=== PATIENT | female | born 1950 | race Caucasian/White ===

== ENCOUNTER 2020-12-07 17:27 | Observation (INO) | payer MEDICARE ==
[2020-12-07 18:43] LABS: Bilirubin Neg (Negative); Blood, Urine Negative (Negative); Clarity Clear (Clear); Glucose, Urine (Dipstick) Normal (Negative); Ketone, Urine Negative (Negative); Leukocyte Negative (Negative); Nitrite Negative (Negative); Protein, Urine (Dipstick) 15 mg/dl (Neg-Trace); Specific Gravity, Urine 1.015 (1.002-1.036); Urobilinogen Normal mg/dL (Less than 2)
[2020-12-07 22:00] VITALS: BMI 38.6
[2020-12-07] MEDS ORDERED: Sodium Chloride 0.9% 1,000 ML IV SCH ×2 (22:15→22:30)
[2020-12-07] MEDS ORDERED: Ondansetron ODT 4 MG TAB PO PRN (22:15)
[2020-12-07] MEDS ORDERED: Senokot S 8.6-50 MG TAB PO PRN (22:15)
[2020-12-07] MEDS ORDERED: Milk Of Magnesia 30 ML UDCUP PO PRN (22:15)
[2020-12-07] MEDS ORDERED: Ondansetron PF 4 MG/2 ML Vial IVP PRN (22:15)
[2020-12-07] MEDS ORDERED: cloNIDine 0.1 MG TAB PO PRN (22:19)
[2020-12-07] MEDS ORDERED: Dulaglutide [Trulicity] 0.75 MG/0.5 ML Pen.Injctr SC SCH (22:30)
[2020-12-08 04:48] LABS: #Eosinphils 0.1 10x3/uL (0.0-0.5); #Monocytes 0.3 10x3/uL (0.0-1.1); %Eosinophils 2.9 % (0.0-6.0); %Lymphocytes 17.2 % (18.0-47.0); %Monocytes 8.3 % (0.0-10.0); Hemoglobin 10.4 g/dL (12.0-15.5); Mean Corpuscular HGB CONC 32.5 g/dL (32.0-36.0); Platelet Count 87 10x3/uL (150-450); RBC Distribution Width 15.3 % (11.5-14.5); White Blood Cell (WBC) Count 3.1 10x3/uL (3.5-10.5)
[2020-12-08 04:49] LABS: #Neutrophils 2.3 10x3/uL (1.5-8.4); %Neutrophils 71.6 % (40.0-75.0)
[2020-12-08 04:58] LABS: Calcium 8.4 mg/dL (7.8-10.44); Chloride 106 mmol/L (98-107); Potassium 3.2 mmol/L (3.5-5.1); Sodium 140 mmol/L (136-145)
[2020-12-08 05:31] LABS: BUN (Urea Nitrogen) 56 mg/dL (9.8-20.1); Calc. Creatinine Clearance 47 mL/min (70-130); Carbon Dioxide 23 mmol/L (23-31); Glucose 88 mg/dL (80-115)
[2020-12-08 05:35] LABS: Anion Gap 14 mmol/L (10-20)
[2020-12-08] MEDS: Metoprolol Tartrate 50 MG TAB PO SCH ×2 (08:00→17:17)
[2020-12-08] MEDS: Aspirin 81 mg Enteric Coated Tablet PO SCH (08:02)
[2020-12-08] MEDS: hydrALAZINE 25 MG TAB PO SCH ×3 (08:02→20:56)
[2020-12-08] MEDS ORDERED: Enoxaparin Sodium 30 MG/0.3 ML SYRINGE SC SCH (09:00)
[2020-12-08] MEDS ORDERED: Potassium Chloride 20 MEQ TAB PO SCH (13:00)
[2020-12-08 13:37] LABS: SARS-CoV-2 PCR by NAA Not Detected (NotDetected)
[2020-12-08] MEDS: Sodium Chloride 0.9% 1,000 ML IV SCH (15:45)
[2020-12-09] MEDS: Sodium Chloride 0.9% 1,000 ML IV SCH (03:11)
[2020-12-09 05:42] LABS: Anion Gap 14 mmol/L (10-20); BUN (Urea Nitrogen) 27 mg/dL (9.8-20.1); Calc. Creatinine Clearance 66 mL/min (70-130); Calcium 8.3 mg/dL (7.8-10.44); Carbon Dioxide 24 mmol/L (23-31); Chloride 109 mmol/L (98-107); Glucose 125 mg/dL (80-115); Potassium 3.4 mmol/L (3.5-5.1); Sodium 144 mmol/L (136-145)
[2020-12-09 08:01] VITALS: TEMP 98.4
[2020-12-09] MEDS ORDERED: Enoxaparin Sodium 40 MG/0.4 ML SYRINGE SC SCH (09:00)
[2020-12-09] MEDS: Metoprolol Tartrate 50 MG TAB PO SCH (11:13)
[2020-12-09] MEDS: Aspirin 81 mg Enteric Coated Tablet PO SCH (11:13)
[2020-12-09] MEDS: hydrALAZINE 25 MG TAB PO SCH (11:14)
[2020-12-09 11:57] VITALS: BP 136/74
== END 2020-12-09 14:45 | disposition home or self-care (01) ==
LOC: CSHERS 17:27 → CSHTELE 18:27 → UNDOADMOB 20:11 → CSHTELE 20:11 → OBSVTOIN 12-09 11:07 → INTOOBSV 12-09 11:07 → UNDODISOB 12-09 14:45
PROVIDERS: ADMIT Family Medicine; ATTEND Internal Medicine
DX: N17.9 Acute kidney failure, unspecified (principal); I50.32 Chronic diastolic (congestive) heart failure; F33.9 Major depressive disorder, recurrent, unspecified; I11.0 Hypertensive heart disease with heart failure; E11.9 Type 2 diabetes mellitus without complications; Z79.84 Long term (current) use of oral hypoglycemic drugs; Z88.0 Allergy status to penicillin; Z88.2 Allergy status to sulfonamides; E66.9 Obesity, unspecified; Z68.38 Body mass index [BMI] 38.0-38.9, adult; N20.0 Calculus of kidney; G47.33 Obstructive sleep apnea (adult) (pediatric); F41.9 Anxiety disorder, unspecified; F43.10 Post-traumatic stress disorder, unspecified; Z20.822 Contact with and (suspected) exposure to COVID-19
CPT/HCPCS: 76770; 80048 ×2; 81003; 82550; 82962 ×3; 83735; 83880; 85025; 94760 ×2; 96372; 99284; G0378 ×4; U0003; U0005; 36415; 36416; 87635; J1650

== ENCOUNTER 2022-11-26 09:49 | Emergency (ER) | payer MEDICARE ==
[2022-11-26 11:41] LABS: #Eosinphils 0.1 10x3/uL (0.0-0.5); #Monocytes 0.5 10x3/uL (0.0-1.1); #Neutrophils 5.4 10x3/uL (1.5-8.4); %Basophils 0.4 % (0.0-2.0); %Eosinophils 1.3 % (0.0-6.0); %Lymphocytes 13.1 % (18.0-47.0); %Monocytes 6.8 % (0.0-10.0); %Neutrophils 77.8 % (40.0-75.0); Hemoglobin 13.6 g/dL (12.0-15.5); Mean Corpuscular HGB CONC 32.9 g/dL (32.0-36.0); Mean Corpuscular Volume 82.1 fl (81.6-98.3); Mean Platelet Volume 10.3 fl (7.4-10.4); Platelet Count 107 10x3/uL (150-450); RBC Distribution Width 15.9 % (11.5-14.5); Red Blood Cell (RBC) Count 5.04 10x6/uL (3.90-5.03); White Blood Cell (WBC) Count 6.9 10x3/uL (3.5-10.5)
[2022-11-26] MEDS ORDERED: HYDROcodone/Acetaminophen 5/325 mg Tablet ONE (11:43)
[2022-11-26 11:53] LABS: ALT (SGPT) 19 U/L (8-55); AST (SGOT) 27 U/L (5-34); Albumin 4.2 g/dL (3.4-4.8); Alkaline Phosphatase 60 U/L (40-110); Anion Gap 16 mmol/L (10-20); BUN (Urea Nitrogen) 31 mg/dL (9.8-20.1); Bilirubin, Total 0.5 mg/dL (0.2-1.2); Calc. Creatinine Clearance 0 mL/min (70-130); Calcium 9.7 mg/dL (7.8-10.44); Carbon Dioxide 27 mmol/L (23-31); Chloride 100 mmol/L (98-107); Estimated GFR 53; Globulin 2.7 g/dL (2.4-3.5); Glucose 141 mg/dL (83-110); Potassium 3.6 mmol/L (3.5-5.1); Protein, Total 6.9 g/dL (5.8-8.1); Sodium 139 mmol/L (136-145)
== END 2022-11-26 13:43 | disposition home or self-care (01) ==
LOC: CSHERS 09:49
DX: M54.50 Low back pain, unspecified (principal); R10.32 Left lower quadrant pain; E11.9 Type 2 diabetes mellitus without complications; I11.0 Hypertensive heart disease with heart failure; I50.9 Heart failure, unspecified; Z79.899 Other long term (current) drug therapy; Z79.84 Long term (current) use of oral hypoglycemic drugs; Z79.82 Long term (current) use of aspirin
CPT/HCPCS: 36415; 71250; 74177; 80053; 85025

== ENCOUNTER 2022-12-05 15:30 | Observation (INO) | payer MEDICARE ==
[2022-12-05 16:26] LABS: #Eosinphils 0.1 10x3/uL (0.0-0.5); #Monocytes 0.6 10x3/uL (0.0-1.1); #Neutrophils 7.6 10x3/uL (1.5-8.4); %Basophils 0.2 % (0.0-2.0); %Eosinophils 0.7 % (0.0-6.0); %Lymphocytes 7.7 % (18.0-47.0); %Monocytes 6.9 % (0.0-10.0); %Neutrophils 83.9 % (40.0-75.0); Hemoglobin 13.3 g/dL (12.0-15.5); Mean Corpuscular HGB CONC 32.7 g/dL (32.0-36.0); Mean Corpuscular Hemoglobin 27.3 pg (27.0-33.0); Mean Corpuscular Volume 83.6 fl (81.6-98.3); Mean Platelet Volume 10.5 fl (7.4-10.4); Platelet Count 149 10x3/uL (150-450); RBC Distribution Width 15.9 % (11.5-14.5); Red Blood Cell (RBC) Count 4.87 10x6/uL (3.90-5.03); White Blood Cell (WBC) Count 9.1 10x3/uL (3.5-10.5)
[2022-12-05 16:37] LABS: Anion Gap 18 mmol/L (10-20); BUN (Urea Nitrogen) 39 mg/dL (9.8-20.1); Calc. Creatinine Clearance 0 mL/min (70-130); Carbon Dioxide 23 mmol/L (23-31); Chloride 98 mmol/L (98-107); Estimated GFR 31; Glucose 188 mg/dL (83-110); Magnesium 1.8 mg/dL (1.6-2.6); Potassium 4.2 mmol/L (3.5-5.1); Sodium 135 mmol/L (136-145)
[2022-12-05] MEDS ORDERED: Ondansetron PF 4 MG/2 ML Vial IVP PRN (18:10)
[2022-12-05] MEDS ORDERED: Acetaminophen 325 MG TAB PO PRN (18:10)
[2022-12-05] MEDS ORDERED: Ondansetron ODT 4 MG TAB PO PRN (18:10)
[2022-12-05] MEDS ORDERED: HYDROcodone/Acetaminophen 7.5/325 mg Tablet PO PRN (18:11)
[2022-12-05 19:07] LABS: Bilirubin Neg (Negative); Blood, Urine Negative (Negative); Clarity Clear (Clear); Glucose, Urine (Dipstick) Normal (Negative); Ketone, Urine Negative (Negative); Leukocyte Negative (Negative); Nitrite Negative (Negative); Protein, Urine (Dipstick) 30 mg/dl (Neg-Trace); Specific Gravity, Urine 1.015 (1.005-1.030); Urobilinogen Normal mg/dL (Less than 2)
[2022-12-05 19:17] LABS: Bacteria/HPF 3+ HPF (None Seen); Mucous/LPF Rare LPF (<2+); RBC/HPF None Seen HPF (0-3); Squamous Epithelial 0-3 HPF (0-3); WBC/HPF 0-3 HPF (0-3)
[2022-12-05] MEDS ORDERED: Sodium Chloride 0.9% 1,000 ML IV SCH (20:00)
[2022-12-05 22:36] LABS: Hemoglobin A1c 5.5 % (4.0-6.0)
== END 2022-12-05 21:30 | disposition short-term general hospital (02) ==
LOC: CSHERS 15:30 → CSHERHOLD 18:35
PROVIDERS: ADMIT Internal Medicine; ATTEND Internal Medicine
DX: S82.401A Unspecified fracture of shaft of right fibula, initial encounter for closed fracture (principal); S82.55XA Nondisplaced fracture of medial malleolus of left tibia, initial encounter for closed fracture; E66.9 Obesity, unspecified; E11.9 Type 2 diabetes mellitus without complications; I50.30 Unspecified diastolic (congestive) heart failure; N18.31 Chronic kidney disease, stage 3a; F41.9 Anxiety disorder, unspecified; F32.A Depression, unspecified; G89.29 Other chronic pain; Z88.0 Allergy status to penicillin; Z88.2 Allergy status to sulfonamides; Z88.8 Allergy status to other drugs, medicaments and biological substances; Z79.899 Other long term (current) drug therapy; W19.XXXA Unspecified fall, initial encounter
CPT/HCPCS: 29515; 36415; 80048; 81003; 81015; 83036; 83735; 85025; 94762

== ENCOUNTER 2022-12-29 01:14 | Emergency (ER) | payer MEDICARE ==
[2022-12-29] MEDS ORDERED: HYDROcodone/Acetaminophen 5/325 mg Tablet ONE (02:17)
== END 2022-12-29 02:52 ==
LOC: CSHERS 01:14
DX: S20.212A Contusion of left front wall of thorax, initial encounter (principal); S80.02XA Contusion of left knee, initial encounter; S16.1XXA Strain of muscle, fascia and tendon at neck level, initial encounter; E11.9 Type 2 diabetes mellitus without complications; I11.0 Hypertensive heart disease with heart failure; I50.9 Heart failure, unspecified; K21.9 Gastro-esophageal reflux disease without esophagitis; W07.XXXA Fall from chair, initial encounter; Z79.82 Long term (current) use of aspirin; Z79.84 Long term (current) use of oral hypoglycemic drugs
CPT/HCPCS: 70450; 71045; 72125

== ENCOUNTER 2023-01-03 00:52 | Emergency (ER) | payer MEDICARE | END 2023-01-03 02:18 | LOC: CSHERS 00:52 | DX: M25.552 Pain in left hip (principal); E11.9 Type 2 diabetes mellitus without complications; I11.0 Hypertensive heart disease with heart failure; I50.9 Heart failure, unspecified; G47.30 Sleep apnea, unspecified; K21.9 Gastro-esophageal reflux disease without esophagitis; M10.9 Gout, unspecified; W06.XXXA Fall from bed, initial encounter; Y92.129 Unspecified place in nursing home as the place of occurrence of the external cause; Z79.82 Long term (current) use of aspirin; Z79.84 Long term (current) use of oral hypoglycemic drugs; Z79.899 Other long term (current) drug therapy ==

== ENCOUNTER 2024-09-10 08:25 | Outpatient (CLI) | payer OTHER ==
[2024-09-10 10:10] LABS: Actual Bicarbonate (HCO3a) 24.8 mEq/L (22-28); Analyzer IN Cardio CS ER; Base Excess (BEa) 0.1 mEq/L (-2.0 to +3.0); CO2 Tension 40.4 mmHg (35.0-45.0); Calcium, Ionized (arterial) 1.13 mmol/L (1.12-1.30); Carboxyhemoglobin (COHb) 0.2 gm% (0.0-3.0); Hematocrit-ABG 30 % (36.0-47.0); Hemoglobin (Hb) 10.3 g/dL (12.0-16.0); O2 Tension (PaO2), arterial 65.4 mmHg (> 70.0); Potassium - ABG Lab 3.91 mmol/L (3.70-5.30); Puncture Site Right Radial artery; pH, Arterial 7.406 (7.35-7.45)
== END 2024-09-10 08:26 | disposition home or self-care (01) ==
LOC: CSHCP 08:25
PROVIDERS: ATTEND Internal Medicine Critical Care Medicine
DX: J96.12 Chronic respiratory failure with hypercapnia (principal)
CPT/HCPCS: 36600; 82805; 94060; 94664; 94729; 94760